=== PATIENT | male | born 1960 | race Caucasian/White ===

== ENCOUNTER 2018-07-06 13:44 | Emergency (ER) | payer BC ==
--- NOTE | 2018-07-06 14:18 | RAD REPORT ---
EXAM DESCRIPTION: CT - CTHCSPWOC - 07/06/2018 2:09 pm CLINICAL HISTORY: Fall, head and neck injury COMPARISON: None. TECHNIQUE: Axial 5 mm thick images of the head were obtained. Axial 2 mm thick images of the cervic al spine were obtained with sagittal and coronal reconstruction images generated and reviewed. All CT scans are performed using dose optimization technique as appropriate and may include automated exposure control or mA/KV adjustment according to patient size. FINDINGS: No intracranial hemorrhage, mass, edema or acute intracranial finding. No suspicion for acute infarct ion. No extra-axial fluid collections. Mastoid air cells and paranasal sinuses are clear. No globe or orbit abnormality seen. Cervical bodies are normal in. Very minimal anterior subluxation of C4 on C5 noted secondary to facet degenerative change. Mild disc space narrowing at C5-6. No fracture or acute bony abnormality. Patie nt has advanced for age facet joint degenerative change on the left at C2-3 and on the right at C3-4. There is right C3-4 foraminal stenosis. Advanced left-sided facet degenerative change at C4-5 result s in significant left foraminal stenosis. Central canal detail is inherently limited on CT imaging. No paraspinal mass or hematoma. IMPRESSION: No hemorrhage, edema or acute CT Head finding. Advanced for age cervical spine degenerative changes are present but no acute findings seen. Negative CT cervical spine examination for acute or significant finding.
--- NOTE | 2018-07-06 14:34 | RAD REPORT ---
EXAM DESCRIPTION: RAD - Wrist Right 3 View - 07/06/2018 2:25 pm CLINICAL HISTORY: Fall from ladder, right hand pain, patient localizes pain to the proximal palm of the hand near the first metacarpal. COMPARISON: None. FINDINGS: No fracture is identified. There is no dislocation or periosteal reaction noted. Epiphyses and growth plates are Normal in appearance. No foreign body or other soft tissue abnormality. IMPRESSION: Negative right wrist examination.
--- NOTE | 2018-07-06 14:35 | RAD REPORT ---
EXAM DESCRIPTION: RAD - Chest Single View - 07/06/2018 2:25 pm CLINICAL HISTORY: Fall from ladder, chest pain, right scapula pain COMPARISON: None. TECHNIQUE: AP portable chest image was obtained 1415 hours . FINDINGS: Lungs are clear. Heart and vasculature are normal. No measurable pleural effusion and no p neumothorax. Clavicle is intact. Femoral head is not dislocated. Much of the shoulder joint is obscur ed from view. No gross abnormality of the right scapula. No gross rib deformity seen. No acute aortic findings suspected. IMPRESSION: No acute cardiopulmonary process.
[2018-07-06 14:59] LABS: Absolute Lymphocytes (CBC) 1.3 K/uL (0.7-4.9); Absolute Monocytes 0.5 K/uL (0.1-1.3); Basophils % 0.6 % (0-1.3); Eosinophils % 2.3 % (0-4.4); Hematocrit 39.6 % (39.6-49.0); Lymphocytes % 16.2 % (15.3-44.8); MPV 9.1 fL (7.6-11.3); Monocytes % 5.8 % (3.3-12.3); RBC Red Blood Cell Count 4.47 M/uL (4.33-5.43)
[2018-07-06 15:10] LABS: Potassium 3.5 mmol/L (3.5-5.1)
--- NOTE | 2018-07-06 15:28 | EDPHYS ---
Physician Documentation [facility] Name: Paul Orta II Age: 58 yrs Sex: Male : 1960 Arrival Date: 07/06/2018 Time: 13:44 Bed 3 Private MD: Scar Short H ED Physician Prieto Hodgson HPI: 07/06 13:59 This 58 yrs old Male presents to ER via Ambulatory with complaints of Fall ps1 Injury. 13:59 patient on a 17 foot ladder and it collapsed. went half way down and fell landing on ps1 his back No LOC. Has abrasion to right scapula, wrist pain, and right ankle abrasion. Not on blood thinners. Pain is mild to moderate. FROM. Ambulated to ED. Came by private vechicle. . Historical: - Allergies: 15:50 PENICILLINS; bp - Home Meds: 15:50 None [Active]; bp - PMHx: 15:50 None; bp - Immunization history: Last tetanus immunization: - up to date. - Social history:: Smoking status: Patient/guardian denies using tobacco. - Ebola Screening: : Patient negative for fever greater than or equal to 101.5 degrees Fahrenheit, and additional compatible Ebola Virus Disease symptoms Patient denies exposure to infectious person Patient denies travel to an Ebola-affected area in the 21 days before illness onset No symptoms or risks identified at this time. ROS: 13:59 Constitutional: Negative for fever, chills, and weight loss, Eyes: Negative for injury, ps1 pain, redness, and discharge, Cardiovascular: Negative for chest pain, palpitations, and edema, Respiratory: Negative for shortness of breath, cough, wheezing, and pleuritic chest pain, Abdomen/GI: Negative for abdominal pain, nausea, vomiting, diarrhea, and constipation, Neuro: Negative for headache, weakness, numbness, tingling, and seizure, Psych: Negative for depression, anxiety, suicide ideation, homicidal ideation, and hallucinations. 13:59 MS/extremity: Positive for abrasion, tenderness, of the right scapular area and right wrist. Exam: 14:01 Constitutional: This is a well developed, well nourished patient who is awake, alert, ps1 and in no acute distress. Head/Face: Normocephalic, atraumatic. Eyes: Pupils equal round and reactive to light, extra-ocular motions intact. Lids and lashes normal. Conjunctiva and sclera are non-icteric and not injected. Chest/axilla: Normal chest wall appearance and motion. Nontender with no deformity. No lesions are appreciated. Cardiovascular: Regular rate and rhythm. No gallops, murmurs, or rubs. Normal PMI, no JVD. No pulse deficits. Respiratory: Lungs have equal breath sounds bilaterally, clear to auscultation and percussion. No rales, rhonchi or wheezes noted. No increased work of breathing, no retractions or nasal flaring. Abdomen/GI: Soft, non-tender, with normal bowel sounds. No distension or tympany. No guarding or rebound. No evidence of tenderness throughout. Back: No spinal tenderness. No costovertebral tenderness. Full range of motion. 14:01 Musculoskeletal/extremity: Extremities: grossly normal except: noted in the right wrist: pain. 14:01 Skin: Appearance: normal except for affected area, swelling, noted on the right scapular area, abrasion. Vital Signs: 13:45 BP 140 / 101; Pulse 108; Resp 18; Temp 98; Pulse Ox 100% ; Weight 72.57 kg; bp 14:41 BP 131 / 101; Pulse 100; Resp 17; Pulse Ox 98% on R/A; dh3 15:30 BP 143 / 90; Pulse 83; Resp 16; Pulse Ox 99% ; bp Mccormick Coma Score: 13:45 Eye Response: spontaneous(4). Verbal Response: oriented(5). Motor Response: obeys bp commands(6). Total: 15. Trauma Score (Adult): 13:45 Eye Response: spontaneous(1); Verbal Response: oriented(1); Motor Response: obeys bp commands(2); Systolic BP: > 89 mm Hg(4); Respiratory Rate: 10 to 29 per min(4); Ladan Score: 15; Trauma Score: 12 MDM: 13:58 Patient medically screened. ps1 07/06 13:58 Order name: Basic Metabolic Panel; Complete Time: 15:12 ps1 07/06 13:58 Order name: CBC with Diff; Complete Time: 15:08 07/06 13:58 Order name: XRAY Chest (1 view); Complete Time: 14:45 ps1 07/06 13:58 Order name: CT Head C Spine; Complete Time: 14:23 ps1 07/06 13:58 Order name: Creatinine for Radiology; Complete Time: 15:38 ps1 07/06 13:58 Order name: Type And Screen ps1 07/06 13:58 Order name: Labs collected and sent; Complete Time: 14:31 ps1 07/06 13:58 Order name: Wrist Right 3 View XRAY; Complete Time: 14:45 ps1 Administered Medications: No medications were administered Disposition: 07/06/18 15:28 Discharged to Home. Impression: Fall, right scapular abrasion, right wrist pain. - Condition is Stable. - Discharge Instructions: Fall Prevention in the Home, Abrasion, [id number]. - Prescriptions for Anaprox DS 550 mg Oral Tablet - take 1 tablet by ORAL route every 12 hours As needed; 20 tablet. Robaxin 500 mg Oral Tablet - take 2 tablet by ORAL route every 6 hours As needed; 40 tablet. Medrol (Sushil) 4 mg Oral Tablets, Dose Pack - take 1 tablet by ORAL route as directed - follow package instructions; 1 packet. - Medication Reconciliation Form, Thank You Letter, Antibiotic Education, Prescription Opioid Use form. - Follow up: Scar Short DO; When: As needed; Reason: Recheck today's complaints. Follow up: Emergency Department; When: As needed; Reason: Worsening of condition. - Problem is new. - Symptoms have improved. Signatures: Dispatcher [employer] EDYasmany Gulilen RN RN Prieto Willard MD MD ps1 Corrections: (The following items were deleted from the chart) 15:52 15:28 07/06/2018 15:28 Discharged to Home. Impression: Fall; right scapular abrasion; bp right wrist pain. Condition is Stable. Forms are Medication Reconciliation Form, Thank You Letter, Antibiotic Education, Prescription Opioid Use. Follow up: Scar Short; When: As needed; Reason: Recheck today's complaints. Follow up: Emergency Department; When: As needed; Reason: Worsening of condition. Problem is new. Symptoms have improved. ps1
--- NOTE | 2018-07-06 15:28 | ER ---
Nurse's Notes [facility] Name: Paul Orta II Age: 58 yrs Sex: Male : 1960 Arrival Date: 07/06/2018 Time: 13:44 Bed 3 Private MD: Scar Short H Diagnosis: Fall;right scapular abrasion;right wrist pain Presentation: 07/06 13:42 Mechanism of Injury: Fall ladder, approximately 17 ft. Trauma event details: Injury aa5 occurred in the [facility], Injury occurred: July 06, 2018. 13:42 Presenting complaint: Patient states: Fell from a ladder approximately 17 ft. Pt c/o aa5 back pain and right hand pain. Denies LOC. Care prior to arrival: None. 13:42 Method Of Arrival: Ambulatory aa5 13:42 Acuity: SHERON 3 aa5 15:48 Transition of care: patient was not received from another setting of care. Onset of bp symptoms was July 06, 2018 at 13:00. Risk Assessment: Do you want to hurt yourself or someone else? Patient reports no desire to harm self or others. Initial Sepsis Screen: Does the patient meet any 2 criteria? No. Patient's initial sepsis screen is negative. Does the patient have a suspected source of infection? No. Patient's initial sepsis screen is negative. Trauma Activation: Alert Physician: ED Physician; Name: ; Notified At: ; Arrived At: Physician: General Surgeon; Name: ; Notified At: ; Arrived At: Physician: Radiology; Name: ; Notified At: ; Arrived At: Physician: Respiratory; Name: ; Notified At: ; Arrived At: Physician: Lab; Name: ; Notified At: ; Arrived At: Historical: - Allergies: 15:50 PENICILLINS; bp - Home Meds: 15:50 None [Active]; bp - PMHx: 15:50 None; bp - Immunization history: Last tetanus immunization: - up to date. - Social history:: Smoking status: Patient/guardian denies using tobacco. - Ebola Screening: : Patient negative for fever greater than or equal to 101.5 degrees Fahrenheit, and additional compatible Ebola Virus Disease symptoms Patient denies exposure to infectious person Patient denies travel to an Ebola-affected area in the 21 days before illness onset No symptoms or risks identified at this time. Screenin:45 Abuse screen: Denies threats or abuse. Denies injuries from another. Tuberculosis bp screening: No symptoms or risk factors identified. 15:50 Nutritional screening: No deficits noted. Fall Risk Fall in past 12 months (25 points). bp No secondary diagnosis (0 pts). No IV (0 pts). Ambulatory Aid- None/Bed Rest/Nurse Assist (0 pts). Gait- Normal/Bed Rest/Wheelchair (0 pts) Mental Status- Oriented to own ability (0 pts). Total Fox Fall Scale indicates Low Risk Score (25-44 pts). Fall prevention measures have been instituted. Side Rails Up X 2 Placed close to Nursing Station Frequent Obs/Assesments occuring Family Present and informed to notify staff if they need to leave bedside As available Patient and Family Educated on Fall Prevention Program and strategies. Primary Survey: 13:45 NO uncontrolled hemorrhage observed. A: The patient is alert. Breathing/Chest: bp Respiratory pattern: regular, Respiratory effort: spontaneous, unlabored, Breath sounds: diminished, bilaterally. Circulation: Skin color: pink, Skin temperature: warm, dry. Disability Alert. Exposure/Environment: All clothing and personal items were removed. Forensic evidence collection is not deemed to be indicated at this time. Items placed in patient belonging bag. There is no evidence of uncontrolled external bleeding. Obvious injury(ies) are noted at this time: ABRASIONS TO R SCAPULA, R ELBOW, R ANKLE. Reassessment Airway Airway Patent Breathing/Chest Respiratory pattern Regular Respiratory effort Spontaneous Unlabored Circulation Color [place] Temperature Warm Dry Disability Alert. Secondary Survey: 14:11 HEENT: No deficits noted. Gastrointestinal: No deficits noted. Abdomen is soft, bp non-distended. : No signs and/or symptoms were reported regarding the genitourinary system. Musculoskeletal: No deficits noted. Injury Description: Abrasion sustained to back and right scapular area and right arm and right wrist. Assessment: 13:45 General: Appears in no apparent distress. uncomfortable, slender, Behavior is calm, bp cooperative, appropriate for age. Pain: Complains of pain in right wrist. Neuro: Level of Consciousness is awake, alert, obeys commands, Oriented to person, place, time, situation, Appropriate for age. EENT: No deficits noted. Cardiovascular: No deficits noted. Respiratory: Airway is patent Respiratory effort is even, unlabored, Respiratory pattern is regular, symmetrical. GI: No signs and/or symptoms were reported involving the gastrointestinal system. : No signs and/or symptoms were reported regarding the genitourinary system. Derm: No deficits noted. Musculoskeletal: Circulation, motion, and sensation intact. Range of motion: intact in all extremities. Vital Signs: 13:45 BP 140 / 101; Pulse 108; Resp 18; Temp 98; Pulse Ox 100% ; Weight 72.57 kg; bp 14:41 BP 131 / 101; Pulse 100; Resp 17; Pulse Ox 98% on R/A; dh3 15:30 BP 143 / 90; Pulse 83; Resp 16; Pulse Ox 99% ; bp Ladan Coma Score: 13:45 Eye Response: spontaneous(4). Verbal Response: oriented(5). Motor Response: obeys bp commands(6). Total: 15. Trauma Score (Adult): 13:45 Eye Response: spontaneous(1); Verbal Response: oriented(1); Motor Response: obeys bp commands(2); Systolic BP: > 89 mm Hg(4); Respiratory Rate: 10 to 29 per min(4); Ladan Score: 15; Trauma Score: 12 ED Course: 13:44 Patient arrived in ED. mr 13:44 Arm band placed on Patient placed in an exam room, on a stretcher. aa5 13:45 Scar Short DO is Private Physician. mr 13:45 Patient has correct armband on for positive identification. Bed in low position. Call bp light in reach. Side rails up X2. 13:45 Patient maintains SpO2 saturation greater than 95% on room air. Thermoregulation: warm bp blanket given to patient. 13:46 Prieto Hodgson MD is Attending Physician. ps1 13:50 Triage completed. aa5 13:58 Yasmany Gonzalez, RN is Primary Nurse. bp 14:08 CT Head C Spine In Process Unspecified. EDMS 14:20 X-ray completed. Patient tolerated procedure well. Patient moved back from radiology. mh1 14:25 XRAY Chest (1 view) In Process Unspecified. EDMS 14:25 Wrist Right 3 View XRAY In Process Unspecified. EDMS 14:29 Initial lab(s) drawn, by me, sent to lab. T\T\S collected, blood band applied to patient. dh3 Inserted saline lock: 20 gauge in left antecubital area, using aseptic technique. Blood collected. 15:27 Scar Short DO is Referral Physician. ps1 15:48 No provider procedures requiring assistance completed. IV discontinued, intact, bp bleeding controlled, No redness/swelling at site. Pressure dressing applied. Administered Medications: No medications were administered Intake: 13:45 PO: 0ml; Total: 0ml. bp Output: 13:45 Urine: 0ml; Total: 0ml. bp Outcome: 15:28 Discharge ordered by . ps1 15:51 Discharged to home ambulatory, with family. bp 15:51 Condition: stable 15:51 Discharge instructions given to patient, Instructed on discharge instructions, follow up and referral plans. medication usage, Demonstrated understanding of instructions, follow-up care, medications, Prescriptions given X 3. 15:52 Patient's length of stay was not longer than 2 hours. bp 15:52 Patient left the ED. bp Signatures: Dispatcher [employer] [facility] MontillaAlejandra mr CarverGay 1 Lindsay Guerrero, RN RN 5 Maria Dolores Coombs 3 Yasmany Gonzalez, RN RN Prieto Willard MD MD ps1
== END 2018-07-06 15:52 | disposition home or self-care (01) ==
LOC: ER 13:44
DX: S40.211A Abrasion of right shoulder, initial encounter (principal); W11.XXXA Fall on and from ladder, initial encounter; Y93.89 Activity, other specified; Y92.9 Unspecified place or not applicable; Z88.0 Allergy status to penicillin
CPT/HCPCS: 36415; 70450; 71045; 72125; 80048; 85025; 86850; 86900; 86901; 99284

== ENCOUNTER 2022-04-01 14:35 | Emergency (ER) | payer BC, OTHER ==
--- OUTSIDE RECORDS SUMMARY | 2022-04-01 14:37 | XMS REPORT | Continuity of Care Document ---
:1960 [address] [facility] t Address [address] [place] [address] Care Team Providers Name Role Phone YANETH FIELD Attending Clinician Unavailable Payers Payer Name Policy Type Policy Number Effective Date Expiration Date Karen WALKER O [id number] 2016 00:00:00 Problems This patient has no known problems. Allergies, Adverse Reactions, Alerts Allergy Allergy Status Severity Reaction(s) Onset Inactive Treating Comm ents Source Name Type Date Date Clinician PENICILL Drug Active Swelling 2016-04 Univer s INS Class 1-20 ity of 00:00: [address] Medications This patient has no known medications. Procedures This patient has no known procedures. Encounters Start End Encounter Admission Attending Care Care Encounter Source Date/Time Date/Time Type Type Clinicians Facility Department ID 2020-07-09 2020-07-09 Outpatient Jose FIELD [facility] [id number] [facility] 11:40:00 11:40:00 YANETH [facility] 2020 2020 Outpatient Jose FIELD [facility] [id number] [facility] 14:35:00 14:35:00 YANETH [facility] Results This patient has no known results.
--- NOTE | 2022-04-01 15:14 | RAD REPORT ---
EXAM DESCRIPTION: CT - Head Brain Wo Cont - 04/01/2022 3:00 pm CLINICAL HISTORY: Dizziness COMPARISON: None. TECHNIQUE: Computed axial tomography of the head was obtained. IV contrast was not requested. All CT scans are performed using dose optimization technique as appropriate and may include automated exposure control or mA/KV adjustment according to patient size. FINDINGS: An intracranial bleed is not seen . The ventricles are normal in caliber. No significant hypodense areas within the brain visualized No extra-axial fluid collection is noted. Fluid within the sinuses/ mastoids is not seen. IMPRESSION: No acute intracranial abnormality is seen. If patient's symptoms persist MRI of the bra in would be recommended.
[2022-04-01] MEDS ORDERED: PROMETHAZINE INJ 25 MG/ML AMP ONE (15:38)
[2022-04-01 15:48] LABS: Absolute Lymphocytes (CBC) 0.9 K/uL (0.7-4.9); Hematocrit 42.5 % (39.6-49.0); Lymphocytes % 8.6 % (15.3-44.8); MPV 8.2 fL (7.6-11.3); RBC Red Blood Cell Count 4.78 M/uL (4.33-5.43)
--- NOTE | 2022-04-01 15:53 | RAD REPORT ---
EXAM DESCRIPTION: Nivia Single View04/01/2022 3:06 pm CLINICAL HISTORY: Dizziness COMPARISON: 2019 FINDINGS: The lungs appear clear of acute infiltrate. The heart is normal size IMPRESSION: No acute abnormalities displayed
[2022-04-01 15:55] LABS: Potassium 3.5 mmol/L (3.5-5.1); Troponin High Sensitivity 4.8 pg/mL (<58.9)
[2022-04-01] MEDS ORDERED: MIDAZOLAM HCL 2 MG/2 ML INJ ONE (16:21)
[2022-04-01] MEDS ORDERED: MECLIZINE HCL 12.5 MG TAB ONE (16:21)
--- NOTE | 2022-04-01 16:57 | RAD REPORT ---
EXAM DESCRIPTION: Richar Angio04/01/2022 4:44 pm CLINICAL HISTORY: Dizziness COMPARISON: None TECHNIQUE: 50 cc Isovue 370 was administered intravenously. 3D MIP reconstruction performed All CT scans are performed using dose optimization technique as appropriate and may include automated exposure control or mA/KV adjustment according to patient size. FINDINGS: Mild mostly noncalcified plaque right carotid bulb. Remainder of the common carotid, internal carotid and external carotid arteries bilaterally are sully l caliber. Vertebral arteries unremarkable. No dissection noted IMPRESSION: Mild plaque right carotid bulb NASCET criteria used. Mild 0-49% stenosis Moderate 50-69% stenosis Severe 70-99% stenosis
--- NOTE | 2022-04-01 17:11 | RAD REPORT ---
EXAM DESCRIPTION: CTHead angio04/01/2022 4:44 pm CLINICAL HISTORY: Dizziness COMPARISON: None TECHNIQUE: CT angiogram of the head was obtained. 3D MIPS reconstruction performed. All CT scans are performed using dose optimization technique as appropriate and may include automated exposure control or mA/KV adjustment according to patient size. FINDINGS: The basilar, internal carotid, anterior cerebral, middle cerebral and posterior cerebral a rteries do not demonstrate a significant abnormality An aneurysm is not seen A significant stenosis is not noted. IMPRESSION: No acute abnormality is displayed
--- NOTE | 2022-04-01 17:15 | RAD REPORT ---
EXAM DESCRIPTION: MRI - Brain Wo Cont - 04/01/2022 5:06 pm CLINICAL HISTORY: Dizziness COMPARISON: Head CT April 01, 2022 TECHNIQUE: Axial, sagittal, and coronal magnetic resonance images of the brain were obtained. FINDINGS: No significant abnormal signal within the brain. Diffusion-weighted/ADC mapping does not reveal evidence of acute infarction. The ventricles are normal caliber. An extra-axial fluid collection is not noted. Fluid within the sinuses/mastoids is not seen IMPRESSION: No acute intracranial abnormality noted
--- NOTE | 2022-04-01 17:32 | ER ---
Nurse's Notes [facility] Name: Paul Orta II Age: 61 yrs Sex: Male : 1960 Arrival Date: 04/01/2022 Time: 14:36 Bed 15 Private MD: Diagnosis: Other peripheral vertigo;Elevated blood-pressure reading, without diagnosis of hypertension;Nausea with vomiting, unspecified Presentation: 04/01 15:33 Chief complaint: Patient states: extreme vertigo; started this morning with drainage jh5 and allergies. Coronavirus screen: Vaccine status: Patient reports receiving the 2nd dose of the covid vaccine. Ebola Screen: Patient negative for fever greater than or equal to 101.5 degrees Fahrenheit, and additional compatible Ebola Virus Disease symptoms Patient denies exposure to infectious person. Patient denies travel to an Ebola-affected area in the 21 days before illness onset. Initial Sepsis Screen: Does the patient meet any 2 criteria? No. Patient's initial sepsis screen is negative. Does the patient have a suspected source of infection? No. Patient's initial sepsis screen is negative. Risk Assessment: Do you want to hurt yourself or someone else? Patient reports no desire to harm self or others. Onset of symptoms was April 01, 2022. 15:33 Method Of Arrival: Ambulatory [facility] 15:33 Acuity: SHERON 3 jh5 Triage Assessment: 15:34 General: Appears in no apparent distress. uncomfortable, slender, well groomed, well jh5 developed, Behavior is calm, cooperative, appropriate for age. Pain: Denies pain. Historical: - Allergies: 15:34 PENICILLINS; jh5 - Immunization history:: Adult Immunizations up to date. - Social history:: Smoking status: Patient denies any tobacco usage or history of. Screenin:52 [facility] ED Fall Risk Assessment (Adult) History of falling in the last 3 months, em6 including since admission No falls in past 3 months (0 pts) Confusion or Disorientation No (0 pts) Intoxicated or Sedated No (0 pts) Impaired Gait No (0 pts) Mobility Assist Device Used No (0 pt) Altered Elimination No (0 pt) Score/Fall Risk Level 0 - 2 = Low Risk Oriented to surroundings, Maintained a safe environment, Educated pt \T\ family on fall prevention, incl call for assistance when getting out of bed, Assessed \T\ reinforced patient's understanding of fall precautions, Provided non-skid footwear, Hourly rounding (assess needs \T\ fall precautionary measures) done, Used ambulatory aids as needed (educated on \T\ assisted with), Used gait belt as appropriate. Abuse screen: Denies threats or abuse. Nutritional screening: No deficits noted. Tuberculosis screening: No symptoms or risk factors identified. Fall Risk Total Fox Fall Scale indicates No Risk (0-24 pts). 17:51 Humpty Dumpty Scale Fall Assessment Tool (age< 18yrs) Fall Risk Score/ Level. em6 Assessment: 15:50 General: Appears in no apparent distress. Behavior is cooperative. Pain: Complains of em6 pain in face Pain does not radiate. Pain currently is 6 out of 10 on a pain scale. Quality of pain is described as throbbing. Neuro: Level of Consciousness is awake, alert, obeys commands, Oriented to person, place, time, situation, Reports dizziness, headache frontal area. Cardiovascular: Patient's skin is warm and dry. Rhythm is sinus rhythm. Respiratory: Airway is patent Respiratory effort is even, unlabored, Respiratory pattern is regular, symmetrical, Ventilator assessment:. GI: No signs and/or symptoms were reported involving the gastrointestinal system. Reports nausea, vomiting. : No signs and/or symptoms were reported regarding the genitourinary system. EENT: No signs and/or symptoms were reported regarding the EENT system. Derm: No signs and/or symptoms reported regarding the dermatologic system. Musculoskeletal: Circulation, motion, and sensation intact. Range of motion: intact in all extremities. 16:50 Reassessment: Patient appears in no apparent distress at this time. No changes from em6 previously documented assessment. Patient and/or family updated on plan of care and expected duration. Pain level reassessed. Patient is alert, oriented x 3, equal unlabored respirations, skin warm/dry/pink. Vital Signs: 15:33 BP 148 / 56; Pulse 86; Resp 18; Temp 98.8; Pulse Ox 100% ; Weight 81.65 kg; Height 5 jh5 ft. 9 in. (175.26 cm); Pain 0/10; 15:52 BP 145 / 97; Pulse 82; Resp 14; Pulse Ox 97% on R/A; em6 17:15 BP 128 / 82; Pulse 69; Resp 12; Pulse Ox 96% on R/A; em6 15:33 Body Mass Index 26.58 (81.65 kg, 175.26 cm) 5 ED Course: 14:36 Patient arrived in ED. as 14:40 Jayson Alston DO is Attending Physician. ms3 15:02 CT Head Brain wo Cont In Process Unspecified. EDMS 15:07 XRAY Chest (1 view) In Process Unspecified. EDMS 15:34 Triage completed. jh5 15:34 Arm band placed on right wrist. jh5 15:35 Marilu Gray, RAVEN is Primary Nurse. em6 15:45 Inserted saline lock: 20 gauge in left forearm, using aseptic technique. Blood em6 collected. inserted by [employer]. 15:52 Bed in low position. Call light in reach. Side rails up X 1. monitor worker on. Pulse em6 ox on. NIBP on. Warm blanket given. 16:32 Inserted saline lock: 20 gauge in left antecubital area, using aseptic technique. em6 16:45 CT Head Angio In Process Unspecified. EDMS 16:45 CT Neck Angio In Process Unspecified. EDMS 17:02 MRI - Brain Wo Cont In Process Unspecified. EDMS 17:31 Marek Christian MD is Referral Physician. ms3 17:51 No provider procedures requiring assistance completed. IV discontinued, intact, em6 bleeding controlled, No redness/swelling at site. Pressure dressing applied. Administered Medications: 15:50 Drug: Phenergan (promethazine) 25 mg Route: IVP; Site: left forearm; em6 16:20 Follow up: Response: No adverse reaction em6 16:32 Drug: Midazolam 3 mg Route: IVP; Site: left antecubital; em6 17:00 Follow up: Response: No adverse reaction em6 17:18 Drug: Meclizine 50 mg Route: PO; em6 17:37 Follow up: Response: No adverse reaction; RASS: Alert and Calm (0) em6 Medication: 17:37 VIS not applicable for this client. em6 Outcome: 17:31 Discharge ordered by . ms3 17:51 Discharged to home via wheelchair, with significant other. em6 17:51 Condition: stable 17:51 Discharge instructions given to patient, significant other, Instructed on discharge instructions, follow up and referral plans. medication usage, Demonstrated understanding of instructions, follow-up care, medications, Prescriptions given X 2. 17:52 Patient left the ED. em6 Signatures: Dispatcher [employer] Julianne Dumont Marcus, DO DO ms3 Sheryl Espinoza, RN RN jh5 Marilu Gray RN RN em6 Corrections: (The following items were deleted from the chart) 17:37 17:37 Response: No adverse reaction em6 em6
--- NOTE | 2022-04-01 17:32 | EDPHYS ---
Physician Documentation [facility] Name: Paul Orta II Age: 61 yrs Sex: Male : 1960 Arrival Date: 04/01/2022 Time: 14:36 Bed 15 Private MD: ED Physician Jayson Alston HPI: 04/01 15:19 This 61 yrs old Male presents to ER via Unassigned with complaints of Vertigo. ms3 15:19 The patient presents with sense of spinning. Onset: The symptoms/episode began/occurred ms3 7 hour(s) ago. Context: occurred while working in his attic. Modifying factors: The symptoms are alleviated by nothing, the symptoms are aggravated by pushing on right sinus. Associated signs and symptoms: Pertinent negatives:. 15:22 Severity of symptoms: At their worst the symptoms were severe in the emergency ms3 department the symptoms have improved markedly, Pain is currently a 0 / 10. Patient's baseline: Neuro: alert and fully oriented, Motor: no deficits, Ambulation: walks without assistance, Speech: normal. Historical: - Allergies: 15:34 PENICILLINS; jh5 - Immunization history:: Adult Immunizations up to date. - Social history:: Smoking status: Patient denies any tobacco usage or history of. ROS: 15:22 Constitutional: Negative for fever, and chills. Neck: Negative for injury, pain, and ms3 swelling, Cardiovascular: Negative for chest pain, and palpitations. Respiratory: Negative for shortness of breath, cough, wheezing, and pleuritic chest pain, MS/Extremity: Negative for injury and deformity, Skin: Negative for injury, rash, and discoloration. 15:22 Abdomen/GI: Positive for nausea and vomiting. 15:22 Neuro: Positive for dizziness. 15:22 All other systems are negative. Exam: 15:22 Constitutional: This is a well developed, well nourished patient who is awake, alert, ms3 and in no acute distress. Head/Face: Normocephalic, atraumatic. Neck: Trachea midline, no cervical lymphadenopathy. Supple, full range of motion without nuchal rigidity, or vertebral point tenderness. No Meningismus. Chest/axilla: Normal chest wall appearance and motion. Nontender with no deformity. Cardiovascular: Regular rate and rhythm with a normal S1 and S2. No gallops, murmurs, or rubs. Normal PMI, no JVD. No pulse deficits. Respiratory: Lungs have equal breath sounds bilaterally, clear to auscultation and percussion. No rales, rhonchi or wheezes noted. No increased work of breathing, no retractions or nasal flaring. Abdomen/GI: Soft, non-tender, with normal bowel sounds. No distension or tympany. No guarding or rebound. No evidence of tenderness throughout. Skin: Warm, dry with normal turgor. Normal color with no rashes, no lesions, and no evidence of cellulitis. 15:22 Neuro: Orientation: is normal, Mentation: is normal, Memory: is normal, Cranial nerves: CN II- XII are normal as tested, Cerebellar function: is grossly normal, normal finger to nose testing, Motor: is normal, Sensation: is normal, Gait: is steady, at a normal pace. 16:25 ECG was reviewed by the Attending Physician. ms3 Vital Signs: 15:33 BP 148 / 56; Pulse 86; Resp 18; Temp 98.8; Pulse Ox 100% ; Weight 81.65 kg; Height 5 [facility] ft. 9 in. (175.26 cm); Pain 0/10; 15:52 BP 145 / 97; Pulse 82; Resp 14; Pulse Ox 97% on R/A; em6 17:15 BP 128 / 82; Pulse 69; Resp 12; Pulse Ox 96% on R/A; em6 15:33 Body Mass Index 26.58 (81.65 kg, 175.26 cm) [facility] MDM: 14:50 Patient medically screened. ms3 15:22 Differential diagnosis: cardiac arrhythmia, hypovolemia, idiopathic dizziness, vertigo. ms3 17:35 Data reviewed: vital signs, nurses notes, lab test result(s), EKG, radiologic studies, ms3 CT scan, MRI, plain films, and as a result, I will discharge patient. Counseling: I had a detailed discussion with the patient and/or guardian regarding: the historical points, exam findings, and any diagnostic results supporting the discharge/admit diagnosis, lab results, radiology results, the need for outpatient follow up, to return to the emergency department if symptoms worsen or persist or if there are any questions or concerns that arise at home. Special discussion: I discussed with the patient/guardian in detail that at this point there is no indication for admission to the hospital. It is understood, however, that if the symptoms persist or worsen the patient needs to return immediately for re-evaluation. ED course: Discussed labs, chest x-ray, CT, MRI with patient and his . Patient to follow-up with Dr. Christian in 2 to 3 days. Patient understands and agrees with plan. All questions were answered. Return precautions discussed include worsening symptoms, or any other concerns. On reevaluation patient is alert and oriented x4, in no apparent distress, nontoxic, ambulatory in Emergency Department, speaking full sentences. 04/01 14:51 Order name: Basic Metabolic Panel; Complete Time: 16:02 ms3 04/01 14:51 Order name: CBC with Diff; Complete Time: 16:02 ms3 04/01 14:51 Order name: Troponin HS; Complete Time: 16:02 ms3 04/01 14:51 Order name: XRAY Chest (1 view); Complete Time: 16:02 ms3 04/01 14:51 Order name: CT Head Brain wo Cont; Complete Time: 15:22 ms3 04/01 16:07 Order name: CT Head Angio; Complete Time: 17:22 ms3 04/01 14:51 Order name: EKG; Complete Time: 14:52 ms3 04/01 14:51 Order name: Cardiac monitoring; Complete Time: 15:50 ms3 04/01 14:51 Order name: EKG - Nurse/Tech; Complete Time: 15:42 ms3 04/01 16:07 Order name: CT Neck Angio; Complete Time: 17:22 ms3 04/01 16:08 Order name: MRI - Brain Wo Cont; Complete Time: 17:22 ms3 04/01 14:51 Order name: IV Saline Lock; Complete Time: 15:42 ms3 04/01 14:51 Order name: Labs collected and sent; Complete Time: 15:42 ms3 04/01 14:51 Order name: O2 Per Protocol; Complete Time: 15:42 ms3 04/01 14:51 Order name: O2 Sat Monitoring; Complete Time: 15:42 ms3 EC:25 Rate is 69 beats/min. Rhythm is regular. QRS [place] is Normal. [place] interval is normal. QRS ms3 interval is normal. Clinical impression: Normal ECG. Interpreted by me. Reviewed by me. Administered Medications: 15:50 Drug: Phenergan (promethazine) 25 mg Route: IVP; Site: left forearm; em6 16:20 Follow up: Response: No adverse reaction em6 16:32 Drug: Midazolam 3 mg Route: IVP; Site: left antecubital; em6 17:00 Follow up: Response: No adverse reaction em6 17:18 Drug: Meclizine 50 mg Route: PO; em6 17:37 Follow up: Response: No adverse reaction; RASS: Alert and Calm (0) em6 Disposition Summary: 04/01/22 17:31 Discharge Ordered Location: Home ms3 Condition: Fair ms3 Diagnosis - Other peripheral vertigo ms3 - Elevated blood-pressure reading, without diagnosis of hypertension ms3 - Nausea with vomiting, unspecified ms3 Followup: ms3 - With: Marek Christian MD - When: 2 - 3 days - Reason: Recheck today's complaints Discharge Instructions: - Discharge Summary Sheet ms3 - Nausea and Vomiting, Adult ms3 - Vertigo ms3 Forms: - Medication Reconciliation Form ms3 - Thank You Letter ms3 - Antibiotic Education ms3 - Prescription Opioid Use ms3 Prescriptions: - ondansetron 4 mg Oral tablet,disintegrating - take 1 tablet by ORAL route every 8 hours for 2 days; 15 tablet; Refills: 0, ms3 Product Selection Permitted - Meclizine 25 mg Oral Tablet - take 1 tablet by ORAL route every 8 hours As needed; 30 tablet; Refills: 0, ms3 Product Selection Permitted Signatures: Dispatcher [employer] Jayson Carlson DO DO ms3 Sheryl Espinoza RN RN jh5 Marilu Gray RN RN em6
[2022-04-01 18:30] VITALS: TEMP 98.8
[2022-04-01 18:32] VITALS: BP 128/82; O2SAT 96
--- NOTE | 2022-04-02 15:16 | EKG ---
Test Date: 2022-04-01 Test Time: 15:17:14 Automatic Seamer: ARISTEO MEASUREMENT RESULTS: Intervals: Rate: 69 NC: 138 QRSD: 86 QT: 414 QTc: 443 Cable: P: 30 NC: 138 QRS: 10 T: -20 INTERPRETIVE STATEMENTS: Normal sinus rhythm Normal ECG No previous ECG available for comparison Electronically Signed On 04-02-22 15:14:58 GANG WORKER by Chito Frost
--- NOTE | 2022-04-03 14:01 | EKG ---
Test Date: 2022-04-01 Test Time: 15:18:25 Box Covering Machine Operator: ARISTEO MEASUREMENT RESULTS: Intervals: Rate: 71 CT: 142 QRSD: 84 QT: 394 QTc: 428 [place]: P: 38 CT: 142 QRS: 22 T: 31 INTERPRETIVE STATEMENTS: Normal sinus rhythm Normal ECG Compared to ECG 04/01/2022 15:17:14 No significant changes Electronically Signed On 04-03-22 13:59:47 THIRD HAND by Chito Frost
== END 2022-04-01 17:52 | disposition home or self-care (01) ==
LOC: ER 14:35
DX: H81.399 Other peripheral vertigo, unspecified ear (principal); R03.0 Elevated blood-pressure reading, without diagnosis of hypertension; R11.2 Nausea with vomiting, unspecified; Z88.0 Allergy status to penicillin
CPT/HCPCS: 93005; 85025; 80048; 36415; 84484; 70450; 70496; 70498; 71045; 70551; 99284; Q9967; J2550; J8597; J2250